=== PATIENT | female | born 1965 | race Hispanic/Latino ===

== ENCOUNTER 2025-04-30 14:53 | Inpatient (IN) | payer SELFPAY ==
[~2025-04-30] VITALS: Ht 149.9 cm; Wt 95.7 kg
[2025-04-30 15:50] LABS: BASOPHILS % 0.8 % (0.0-1.0); EOSINOPHILS % 2.8 % (0.0-6.0); LYMPHOCYTES % 30.3 % (18.0-39.1); MONOCYTES % 13.8 % (4.4-11.3); NEUTROPHILS % 51.9 % (38.7-80.0); RED CELL DISTRIBUTION WIDTH 22.7 % (11.7-14.4)
[2025-04-30 16:15] LABS: EST GLOMERULAR FILTRATION RATE 103.0 ML/MIN (>=60)
[2025-04-30] MEDS ORDERED: IOPAMIDOL 370 MG/ML 100 ML INFUS..BTL INJ ONE (16:26)
[2025-04-30 18:00] VITALS: PULSE 74; RESP 18; TEMP 98.3
[2025-04-30 18:15] VITALS: BP 126/54; PULSE 91; RESP 20; TEMP 98.8; O2SAT 100
[2025-04-30] MEDS ORDERED: HYDRALAZINE HCL 20 MG/ML VIAL IV PRN (18:15)
[2025-04-30] MEDS ORDERED: ONDANSETRON HCL 4 MG ORAL DISINTEGRATING TAB PO PRN (18:15)
[2025-04-30] MEDS ORDERED: MELATONIN 5 MG TABLET PO PRN (18:15)
[2025-04-30 18:16] LABS: % IRON SATURATION 4.0 % (15-50)
[2025-04-30 19:30] VITALS: PULSE 94; RESP 20; O2SAT 100
[2025-04-30 19:37] VITALS: BP 124/49; PULSE 94; RESP 18; TEMP 98; O2SAT 100
[2025-04-30 20:00] VITALS: BP 124/49; PULSE 94; RESP 18; TEMP 98; O2SAT 100
[2025-04-30 21:00] VITALS: BP 124/49; PULSE 94; RESP 18; TEMP 98; O2SAT 100
[2025-04-30] MEDS ORDERED: ACETAMINOPHEN 325 MG TAB PO PRN (23:00)
[2025-05-01] VITALS (8 sets, daily range): BP systolic 113–119; BP diastolic 50–64; PULSE 82–92; RESP 18–20; TEMP 97.6–98.6; O2SAT 97–100
[2025-05-01] MEDS: HYDROCODONE/APAP 5MG-325MG TAB PO PRN (00:17)
[2025-05-01] MEDS: FUROSEMIDE INJ 10 MG/ML 4 ML VIAL IV ONE ×3 (02:39→15:38)
[2025-05-01 06:09] LABS: BASOPHILS % 0.7 % (0.0-1.0); EOSINOPHILS % 3.2 % (0.0-6.0); LYMPHOCYTES % 34.5 % (18.0-39.1); MONOCYTES % 14.7 % (4.4-11.3); NEUTROPHILS % 46.9 % (38.7-80.0); RED CELL DISTRIBUTION WIDTH 21.0 % (11.7-14.4)
[2025-05-01 06:35] LABS: EST GLOMERULAR FILTRATION RATE 101.0 ML/MIN (>=60)
[2025-05-01 07:42] LABS: EOSINOPHILS % (MANUAL) 1 % (0-7); LYMPHOCYTES % (MANUAL) 28 % (19-48); MONOCYTES % (MANUAL) 10 % (3.4-9.0); NEUTROPHILS % (MANUAL) 61 % (40-74)
[2025-05-01 07:43] LABS: PLATELET ESTIMATE MODERATELY DECREASED; PLATELET MORPHOLOGY COMMENT NORMAL; RBC MORPHOLOGY COMMENT ABNORMAL
[2025-05-01] MEDS: SODIUM FERRIC GLUCONATE COMPLX 125 MG in SODIUM CHLORIDE 0.9% 100 ML IV SCH (09:52)
[2025-05-01] MEDS: METHOCARBAMOL 500 MG TAB PO SCH (09:53)
[2025-05-01] MEDS: LIDOCAINE 4% PATCH TP SCH (09:53)
[2025-05-01] MEDS: SODIUM CHLORIDE 0.9% 250ML 250 ML IV ONE (12:05)
[2025-05-02] VITALS (7 sets, daily range): BP systolic 103–126; BP diastolic 48–97; PULSE 81–92; RESP 17–19; TEMP 97.8–98.3; O2SAT 94–99
[2025-05-02 05:39] LABS: BASOPHILS % 0.8 % (0.0-1.0); EOSINOPHILS % 3.3 % (0.0-6.0); LYMPHOCYTES % 26.2 % (18.0-39.1); MONOCYTES % 12.3 % (4.4-11.3); NEUTROPHILS % 57.4 % (38.7-80.0); RED CELL DISTRIBUTION WIDTH 22.6 % (11.7-14.4)
[2025-05-02 06:31] LABS: INR 1.24
[2025-05-02 06:37] LABS: EST GLOMERULAR FILTRATION RATE 99.0 ML/MIN (>=60)
[2025-05-02] MEDS ORDERED: IRON SUCROSE 100 MG in SODIUM CHLORIDE 0.9% 100 ML IV SCH (09:00)
[2025-05-02] MEDS: FUROSEMIDE INJ 10 MG/ML 4 ML VIAL IV ONE ×2 (09:04→16:30)
[2025-05-02] MEDS: SODIUM CHLORIDE 0.9% 250ML 250 ML IV ONE ×2 (09:18→11:07)
[2025-05-02] MEDS: SODIUM CHLORIDE 0.9% 250ML 250 ML ONE (11:07)
[2025-05-02] MEDS ORDERED: LIDOCAINE HCL 2% LOCAL INJ 5 ML SDV VIAL INJ ONE (15:48)
[2025-05-02] MEDS ORDERED: PROPOFOL IV EMULSION 10 MG/ML 20 ML VIAL ONE (15:49)
[2025-05-02] MEDS ORDERED: FENTANYL CITRATE/PF 100MCG/2 ML INJ ONE (15:52)
[2025-05-02] MEDS ORDERED: ONDANSETRON HCL INJ 2MG/ML 2ML 2 MG/ML VIAL ONE (16:03)
[2025-05-02] MEDS ORDERED: METOCLOPRAMIDE HCL 10 MG/2ML VIAL ONE (16:16)
[2025-05-02] MEDS: ONDANSETRON HCL INJ 2MG/ML 2ML 2 MG/ML VIAL ONE (17:11)
[2025-05-03 04:00] VITALS: BP 112/51; PULSE 85; RESP 17; TEMP 98.1; O2SAT 96
[2025-05-03 05:26] LABS: BASOPHILS % 1.1 % (0.0-1.0); EOSINOPHILS % 2.7 % (0.0-6.0); LYMPHOCYTES % 33.3 % (18.0-39.1); MONOCYTES % 11.9 % (4.4-11.3); NEUTROPHILS % 51.0 % (38.7-80.0); RED CELL DISTRIBUTION WIDTH 22.5 % (11.7-14.4)
[2025-05-03 05:57] LABS: EST GLOMERULAR FILTRATION RATE 101.0 ML/MIN (>=60)
[2025-05-03 08:50] VITALS: BP 112/51; PULSE 85; RESP 17; TEMP 98.1; O2SAT 96
[2025-05-03] MEDS: CARVEDILOL 12.5 MG TAB PO SCH (09:00)
[2025-05-03 09:12] VITALS: BP 102/51; PULSE 78; RESP 18; TEMP 98.4; O2SAT 95
== END 2025-05-03 14:50 | disposition home or self-care (01) | DRG 808 ==
LOC: ER 14:56 → ERHOLD 17:18 → MED/SURG3 18:27
PROVIDERS: ADMIT Family Medicine Adult Medicine; ATTEND Family Medicine Adult Medicine
PROC: 30233N1 Transfusion of Nonautologous Red Blood Cells into Peripheral Vein, Percutaneous Approach (ICD-10-PCS; 2025-04-30)
PROC: 06L34CZ Occlusion of Esophageal Vein with Extraluminal Device, Percutaneous Endoscopic Approach (ICD-10-PCS; principal; 2025-05-02 15:50)
DX: D61.818 Other pancytopenia (principal); I85.11 Secondary esophageal varices with bleeding; E46 Unspecified protein-calorie malnutrition; K76.6 Portal hypertension; E66.01 Morbid (severe) obesity due to excess calories; Z68.41 Body mass index [BMI] 40.0-44.9, adult; K70.31 Alcoholic cirrhosis of liver with ascites; E11.9 Type 2 diabetes mellitus without complications; I45.10 Unspecified right bundle-branch block; I70.0 Atherosclerosis of aorta; K31.89 Other diseases of stomach and duodenum; R60.0 Localized edema; D50.9 Iron deficiency anemia, unspecified; E88.09 Other disorders of plasma-protein metabolism, not elsewhere classified; Z87.891 Personal history of nicotine dependence; Z90.49 Acquired absence of other specified parts of digestive tract
CPT/HCPCS: 36415; 43235; 43255; 71045; 74177; 80048; 80053; 82607; 82728; 82746; 82948; 83540; 83690; 83880; 84466; 84484; 85014; 85018; 85025; 85045; 85610; 86850; 86900; 86920; 93005; 93306; 94799; 99284; J1756; J1938; J2003; J2405; J2470; J2765; J2916; J7050; P9016; Q9967